=== PATIENT | male | born 1955 | race Caucasian/White ===

== ENCOUNTER 2018-02-24 08:34 | Emergency (ER) | payer OTHER ==
[2018-02-24] MEDS ORDERED: TORAdol 30 mg Injection IV ONE (08:46)
[2018-02-24] MEDS ORDERED: Sodium Chloride 0.9% 1000 ML 1,000 ML IV STA (08:46)
[2018-02-24] MEDS ORDERED: Zofran 4 MG/2 ML VIAL IV ONE (08:46)
--- NOTE | 2018-02-24 08:51 | ERPHSYRPT ---
- History of Present Illness Time Seen by Provider: 02/24/18 08:48 Historian: patient Exam Limitations: no limitations Patient Subjective Stated Complaint: Pt states "My stomach has been hurting for a couple of days now and today it is really bad. My back hurts too." Triage Nursing Assessment: Pt alert and oriented X 3, skin pwd Pt ambulates with a hunched over gait, able to speak in clear full sentences. Pt holding abdomen. Physician History: mild to mod LLQ pain ache since Saturday off and on, rad to back, no injury, no fever, +NV, last BM days ago no blood, hx appendectomy Allergies/Adverse Reactions: No Known Drug Allergies Allergy (Unverified 04/14/14 13:39) Home Medications: Aspirin 81 mg PO DAILY 04/14/14 [History] Atorvastatin Calcium [Lipitor] 10 mg PO DAILY 04/14/14 [History] Hx Tetanus, Diphtheria Vaccination/Date Given: Yes Hx Influenza Vaccination/Date Given: No Hx Pneumococcal Vaccination/Date Given: No Immunizations Up to Date: Yes - Review of Systems Constitutional: No Fever Eyes: No Vision Changes Ears, Nose, & Throat: No Mouth Swelling Respiratory: No Dyspnea Cardiac: No Chest Pain Abdominal/Gastrointestinal: Abdominal Pain, Vomiting, No Hematochezia Genitourinary Symptoms: No Dysuria Musculoskeletal: Back Pain Skin: No Rash Neurological: No Dizziness - Past Medical History Pertinent Past Medical History: Yes Neurological History: No Pertinent History ENT History: No Pertinent History Cardiac History: High Cholesterol Respiratory History: No Pertinent History Endocrine Medical History: No Pertinent History Musculoskeletal History: No Pertinent History GI Medical History: Polyps History: No Pertinent History Psycho-Social History: No Pertinent History Male Reproductive Disorders: No Pertinent History - Past Surgical History Past Surgical History: Yes Neuro Surgical History: No Pertinent History Cardiac: No Pertinent History Respiratory: No Pertinent History Gastrointestinal: Appendectomy Genitourinary: No Pertinent History Musculoskeletal: No Pertinent History Male Surgical History: No Pertinent History Other Surgical History: several colonoscopy - Social History Smoking Status: Former smoker How long have you smoked: 4yrs Exposure to second hand smoke: No Drug Use: none Patient Lives Alone: No - Nursing Vital Signs Nursing Vital Signs: Initial Vital Signs Temperature 97.8 F 02/24/18 08:37 Pulse Rate 72 02/24/18 08:37 Respiratory Rate 18 02/24/18 08:37 Blood Pressure 171/77 02/24/18 08:37 O2 Sat by Pulse Oximetry 99 02/24/18 08:37 Pain Scale Pain Intensity 0 - Physical Exam General Appearance: no apparent distress Eye Exam: eyes nml inspection Ears, Nose, Throat Exam: moist mucous membranes Neck Exam: normal inspection Respiratory Exam: No respiratory distress Cardiovascular Exam: regular rate/rhythm Gastrointestinal/Abdomen Exam: soft, tenderness, No rebound Back Exam: normal range of motion Extremity Exam: normal range of motion Neurologic Exam: alert, oriented x 3, cooperative Skin Exam: warm, dry SpO2 Interpretation: normal SpO2: 99 Oxygen Delivery: Room Air - Course Nursing assessment & vital signs reviewed: Yes EKG Interpreted by Me: Other (nsr 61, no stemi) - CT Exams Abdomen/Pelvis CT Interpretation: Discussed w/radiologist, Other (6mm left ureteral stone with partial obstruction) Ordered Tests: Active Orders 24 hr Category Date Time Status EKG-ER Only STAT Care 02/24/18 08:46 Active IV Insertion STAT Care 02/24/18 08:46 Active ABDOMEN AND PELVIS W/0 CONTRAS [CT] Stat Exams 02/24/18 08:46 Completed CBC W DIFF Stat Lab 02/24/18 08:30 Completed CMP Stat Lab 02/24/18 08:30 Completed CULTURE,URINE Stat Lab 02/24/18 08:46 Received LIPASE Stat Lab 02/24/18 08:30 Completed Lactic Acid Stat Lab 02/24/18 08:46 Completed PROTIME WITH INR Stat Lab 02/24/18 08:30 Completed TROPONIN Q3H Lab 02/24/18 09:00 Completed TROPONIN Q3H Lab 02/24/18 12:00 Ordered TROPONIN Q3H Lab 02/24/18 15:00 Ordered TROPONIN Q3H Lab 02/24/18 18:00 Ordered TROPONIN Q3H Lab 02/24/18 21:00 Ordered UA W/ MICROSCOPIC Stat Lab 02/24/18 08:46 Completed Medication Summary Discontinued Medications Generic Name Dose Route Start Last Admin Trade Name Freq PRN Reason Stop Dose Admin Sodium Chloride 1,000 mls @ 999 mls/hr 02/24/18 08:46 02/24/18 08:54 Sodium Chloride 0.9% 1000 Ml IV 02/24/18 09:46 999 mls/hr .Q1H1M STA Administration Sodium Chloride Confirm 02/24/18 08:52 Sodium Chloride 0.9% 1000 Ml Administered 02/24/18 08:53 Dose 1,000 mls @ ud .ROUTE .STK-MED ONE Ketorolac Tromethamine 30 mg 02/24/18 08:46 02/24/18 08:54 Toradol 30 Mg Injection IV 02/24/18 08:47 30 mg STAT ONE Administration Ketorolac Tromethamine Confirm 02/24/18 08:52 Toradol 30 Mg Injection Administered 02/24/18 08:53 Dose 30 mg .ROUTE .STK-MED ONE Ondansetron HCl 4 mg 02/24/18 08:46 02/24/18 08:54 Zofran 4 Mg/2 Ml Vial IV 02/24/18 08:47 4 mg STAT ONE Administration Ondansetron HCl Confirm 02/24/18 08:52 Zofran 4 Mg/2 Ml Vial Administered 02/24/18 08:53 Dose 4 mg .ROUTE .STK-MED ONE Lab/Rad Data: Laboratory Result Diagrams 02/24/18 08:30 02/24/18 08:30 Laboratory Results 02/24/18 02/24/18 02/24/18 Range/Units 09:00 08:46 08:46 WBC (4.0-10.5) K/mm3 RBC (4.1-5.6) M/mm3 Hgb (12.5-18.0) gm/dl Hct (42-50) % MCV (78-100) fl MCH (26-32) pg MCHC (32-36) g/dl RDW (11.5-14.0) % Plt Count (150-450) K/mm3 MPV (6-9.5) fl Gran % (36.0-66.0) % Eos # (Auto) (0-0.5) Absolute Lymphs (auto) (1.0-4.6) Absolute Monos (auto) (0.0-1.3) Lymphocytes % (24.0-44.0) % Monocytes % (0.0-12.0) % Eosinophils % (0.00-5.0) % Basophils % (0.0-0.4) % Absolute Granulocytes (1.4-6.9) Basophils # (0-0.4) PT (8.83-12.87) SECONDS INR (0.8-3.0) Sodium (137-145) mmol/L Potassium (3.5-5.1) mmol/L Chloride (98-107) mmol/L Carbon Dioxide (22-30) mmol/L Anion Gap (5-15) MEQ/L BUN (9-20) mg/dL Creatinine (0.66-1.25) mg/dL Estimated GFR ML/MIN Glucose (74-106) mg/dL Lactic Acid 1.3 (0.4-2.0) Calcium (8.4-10.2) mg/dL Total Bilirubin (0.2-1.3) mg/dL AST (17-59) U/L ALT (0-50) U/L Alkaline Phosphatase (38-126) U/L Troponin I < 0.012 (0.000-0.034) ng/mL Serum Total Protein (6.3-8.2) g/dL Albumin (3.5-5.0) g/dL Lipase (23-300) U/L Ur Collection Type CLEAN CATCH Urine Color YELLOW (YELLOW) Urine Appearance HAZY (CLEAR) Urine pH 6.0 (5-6) Ur Specific [place] 1.020 (1.005-1.025) Urine Protein TRACE (Negative) Urine Ketones MODERATE (NEGATIVE) Urine Blood 250 (0-5) Jacob/ul Urine Nitrite NEGATIVE (NEGATIVE) Urine Bilirubin NEGATIVE (NEGATIVE) Urine Urobilinogen NORMAL (0-1) mg/dL Ur Leukocyte Esterase NEGATIVE (NEGATIVE) Urine Microscopic RBC 10-15 (0-2) /HPF Urine Microscopic WBC 0-2 (0-5) /HPF Ur Epithelial Cells FEW (FEW) /HPF Urine Bacteria FEW (NEGATIVE) /HPF Urine Mucus SLIGHT (NEGATIVE) /HPF Urine Culture Reflexed YES (NO) Urine Glucose NEGATIVE (NEGATIVE) mg/dL Specimen Received 02-24-18 1036 02/24/18 02/24/18 02/24/18 Range/Units 08:30 08:30 08:30 WBC 8.2 (4.0-10.5) K/mm3 RBC 5.17 (4.1-5.6) M/mm3 Hgb 15.6 (12.5-18.0) gm/dl Hct 46.7 (42-50) % MCV 90.3 (78-100) fl MCH 30.2 (26-32) pg MCHC 33.4 (32-36) g/dl RDW 14.2 H (11.5-14.0) % Plt Count 148 L (150-450) K/mm3 MPV 10.7 H (6-9.5) fl Gran % 66.3 H (36.0-66.0) % Eos # (Auto) 0.37 (0-0.5) Absolute Lymphs (auto) 1.76 (1.0-4.6) Absolute Monos (auto) 0.59 (0.0-1.3) Lymphocytes % 21.5 L (24.0-44.0) % Monocytes % 7.2 (0.0-12.0) % Eosinophils % 4.5 (0.00-5.0) % Basophils % 0.5 (0.0-0.4) % Absolute Granulocytes 5.41 (1.4-6.9) Basophils # 0.04 (0-0.4) PT 11.6 (8.83-12.87) SECONDS INR 1.00 (0.8-3.0) Sodium 141 (137-145) mmol/L Potassium 3.9 (3.5-5.1) mmol/L Chloride 102 (98-107) mmol/L Carbon Dioxide 27 (22-30) mmol/L Anion Gap 15.5 H (5-15) MEQ/L BUN 20 (9-20) mg/dL Creatinine 0.91 (0.66-1.25) mg/dL Estimated GFR > 60.0 ML/MIN Glucose 126 H (74-106) mg/dL Lactic Acid (0.4-2.0) Calcium 9.6 (8.4-10.2) mg/dL Total Bilirubin 0.90 (0.2-1.3) mg/dL AST 25 (17-59) U/L ALT 28 (0-50) U/L Alkaline Phosphatase 88 (38-126) U/L Troponin I (0.000-0.034) ng/mL Serum Total Protein 7.7 (6.3-8.2) g/dL Albumin 4.7 (3.5-5.0) g/dL Lipase 59 (23-300) U/L Ur Collection Type Urine Color (YELLOW) Urine Appearance (CLEAR) Urine pH (5-6) Ur Specific [place] (1.005-1.025) Urine Protein (Negative) Urine Ketones (NEGATIVE) Urine Blood (0-5) Jacob/ul Urine Nitrite (NEGATIVE) Urine Bilirubin (NEGATIVE) Urine Urobilinogen (0-1) mg/dL Ur Leukocyte Esterase (NEGATIVE) Urine Microscopic RBC (0-2) /HPF Urine Microscopic WBC (0-5) /HPF Ur Epithelial Cells (FEW) /HPF Urine Bacteria (NEGATIVE) /HPF Urine Mucus (NEGATIVE) /HPF Urine Culture Reflexed (NO) Urine Glucose (NEGATIVE) mg/dL Specimen Received - Progress Progress: improved Progress Note: 02/24/18 11:[address] He for Urology referral, return if worse, toradol, cipro, flomax, zofran, oral fluids Counseled pt/family regarding: lab results, diagnosis, need for follow-up, rad results - Departure Time of Disposition: 11:06 Departure Disposition: Home Clinical Impression: Renal colic on left side Condition: Stable Critical Care Time: No Referrals: RAINA HE MD [Primary Care Provider] - Instructions: Acute Abdomen (Belly Pain), Adult (DC) Additional Instructions: see Dr He for Urology referral, cipro, toradol, flomax, zofran, oral fluids, return if worse
[2018-02-24] MEDS ORDERED: Sodium Chloride 0.9% 1000 ML 1,000 ML ONE (08:52)
[2018-02-24] MEDS ORDERED: Zofran 4 MG/2 ML VIAL ONE (08:52)
[2018-02-24] MEDS ORDERED: TORAdol 30 mg Injection ONE (08:52)
[2018-02-24 09:00] LABS: BASOPHIL % 0.5 % (0.0-0.4); Basophil (Absolute #) 0.04 (0-0.4); Eosinophil % 4.5 % (0.00-5.0); Eosinophil (Absolute #) 0.37 (0-0.5); Granulocyte Absolute (ANC) 5.41 (1.4-6.9); Granulocytes % 66.3 % (36.0-66.0); Hematocrit 46.7 % (42-50); Hemoglobin 15.6 gm/dl (12.5-18.0); Lymphocyte (Absolute #) 1.76 (1.0-4.6); Lymphocytes % 21.5 % (24.0-44.0); Mean Cell Volume 90.3 fl (78-100); Mean Corpuscular Hemoglobin 30.2 pg (26-32); Mean Corpuscular Hgb Concent. 33.4 g/dl (32-36); Mean Platelet Volume 10.7 fl (6-9.5); Monocyte (Absolute #) 0.59 (0.0-1.3); Monocytes % 7.2 % (0.0-12.0); Platelet Count 148 K/mm3 (150-450); Red Blood Count 5.17 M/mm3 (4.1-5.6); Red Cell Distribution Width 14.2 % (11.5-14.0); White Blood Count 8.2 K/mm3 (4.0-10.5)
[2018-02-24 09:22] LABS: ALBUMIN 4.7 g/dL (3.5-5.0); ALKALINE PHOSPHATASE 88 U/L (38-126); ANION GAP 15.5 MEQ/L (5-15); BLOOD UREA NITROGEN 20 mg/dL (9-20); CHLORIDE 102 mmol/L (98-107); Calcium 9.6 mg/dL (8.4-10.2); Carbon Dioxide 27 mmol/L (22-30); Creatinine 1 0.91 mg/dL (0.66-1.25); Glucose 126 mg/dL (74-106); LIPASE 59 U/L (23-300); Potassium 3.9 mmol/L (3.5-5.1); SGOT/AST 25 U/L (17-59); SGPT/ALT 28 U/L (0-50); SODIUM 141 mmol/L (137-145); Total Protein 7.7 g/dL (6.3-8.2)
--- NOTE | 2018-02-24 09:22 | XRAY ---
Indication: Left lower quadrant pain. Multiple contiguous axial images obtained through the abdomen and pelvis without contrast as ordered. Comparison: None Lung bases demonstrates lingular fibrosis/scarring. No infiltrate or effusion. Heart is not enlarged. There is a 6 mm proximal left ureteral calculus, approximately L3 level with mild hydronephrosis. No perinephric fluid. Two additional subcentimeter left renal calculi. Noncontrasted stomach and bowel loops appear nonobstructed. Normal appendix. No free fluid/air. Remaining liver, gallbladder, pancreas, spleen, adrenal glands, kidneys, ureters, and bladder appear unremarkable for noncontrast exam. Mild aortoiliac calcifications without AAA. Osseous structures intact with minimal degenerative changes. Impression: 6 mm proximal left ureteral calculus producing partial obstruction. 2 additional left renal calculi. CT DI 16.89
[2018-02-24 10:36] LABS: Appearance HAZY (CLEAR); Bilirubin NEGATIVE (NEGATIVE); Blood 250 Ery/ul (0-5); Glucose NEGATIVE (NEGATIVE); Ketones MODERATE (NEGATIVE); Leukocyte Esterase NEGATIVE (NEGATIVE); Nitrite NEGATIVE (NEGATIVE); Protein,Urine Dip TRACE (Negative); Urobilinogen NORMAL mg/dL (0-1)
[2018-02-24 10:37] LABS: Bacteria FEW /HPF (NEGATIVE); Epithelial Cells FEW /HPF (FEW); Mucus SLIGHT /HPF (NEGATIVE); WBC 0-2 /HPF (0-5)
[2018-02-24 11:00] VITALS: BP 123/56; PULSE 78
[2018-02-24 11:08] VITALS: O2SAT 99
== END 2018-02-24 11:48 | disposition home or self-care (01) ==
LOC: ED 08:34
DX: N23 Unspecified renal colic (principal); R10.32 Left lower quadrant pain; Z79.82 Long term (current) use of aspirin; Z79.899 Other long term (current) drug therapy
CPT/HCPCS: 36000; 36415; 74176; 80053; 81000; 83605; 83690; 84484; 85025; 85610; 87086; 93005; 96360; 96374; 96375; 99284; J1885; J2405